=== PATIENT | male | born 1955 | race Caucasian/White ===

== ENCOUNTER → 2020-01-05 10:34 | Outpatient (BNVA) | payer BC, SELFPAY | PROVIDERS: Visit Provider Orthopaedic Surgery | DX: Z09 Encounter for follow-up examination after completed treatment for conditions other than malignant neoplasm (principal); Z98.890 Other specified postprocedural states; M54.16 Radiculopathy, lumbar region; M47.896 Other spondylosis, lumbar region | CPT/HCPCS: 72100; 73560 ==

== ENCOUNTER 2020-01-12 11:30 | Outpatient (CLI) | payer BC, SELFPAY ==
--- NOTE | 2020-01-12 16:45 | MR_ITS ---
WS: [id number] MRI LUMBAR SPINE NONCONTRAST HISTORY: pain COMPARISON: Lumbar spine radiograph 01/05/2020 TECHNIQUE: Sagittal and axial multisequence imaging is submitted. Slight increase in thoracic kyphosis. Posterior lumbar alignment is normal. There is a vertical fracture through the mid L1 vertebral body. Very slight, less than 2 mm retropulsion, of the posterior L1 vertebral body. Approximately 30% loss of height consistent with a compression fracture. No marrow edema. There is a small amount of marrow edema in the L5 facet joints and lamina. Highly suspicious for at least a LEFT pars defect at L5. Disc spaces and vertebral body heights are well-preserved. Conus terminates normally at L1-2 disc level. T12-L1: Very slight flattening of the thecal sac with no stenosis due to the retropulsion. L1-L2: Mild annular disc bulging and facet arthropathy. Mild bilateral foraminal stenosis facet joint arthritis. Greater on the RIGHT. L2-L3: Mild bilateral facet joint arthritis. Small amount of fluid in the RIGHT facet joint. Mild lia ateral foraminal stenosis. L3-L4: Bilateral facet joint arthritis with mild narrowing of the central canal, subarticular recesse s and foramen. L4-L5: Marked facet joint arthropathy and ligamentum flavum hypertrophy. Degenerative changes in the facets and ligaments encroaching upon the ventral thecal sac. There is coalescence of the nerve roots in the thecal sac. Severe central stenosis. There is at least moderate subarticular recess and michael inal stenosis. L5-S1: Annular disc bulging with facet arthropathy. Facet joint arthritis encroaches upon the subarti cular recesses. Moderate central stenosis with subarticular recess and bilateral foraminal stenosis. Osteophytes contact the S1 nerve roots bilaterally. 8 mm RIGHT renal cyst. Incompletely visualized small cyst in the soft tissues posterior to the distal sacrum could be a pilonidal cyst. This is very superficial and incompletely visualized. MR/MR lumbar spine wo con* [id number] IMPRESSION: 1. Advanced facet joint arthropathy and stenoses at L4-5 and L5-S1. 2. Severe central stenosis at L4-5 with moderate subarticular recess and michael inal stenosis. 3. Moderate central, subarticular recess and bilateral foraminal stenosis at L 5-S1. 4. Facet osteophytes contact the S1 nerve roots bilaterally. 5. Chronic L1 compression fracture with 30% loss of height.
== END 2020-01-12 11:31 | disposition home or self-care (01) ==
LOC: RADSHAW 11:32
PROVIDERS: Visit Provider Orthopaedic Surgery
DX: M54.9 Dorsalgia, unspecified (principal); M25.78 Osteophyte, vertebrae; M47.816 Spondylosis without myelopathy or radiculopathy, lumbar region; M48.061 Spinal stenosis, lumbar region without neurogenic claudication; M48.56XA Collapsed vertebra, not elsewhere classified, lumbar region, initial encounter for fracture
CPT/HCPCS: 72148

== ENCOUNTER → 2025-10-28 12:21 | Outpatient (BNVA) | payer MEDICARE, BC, SELFPAY | PROVIDERS: PCP Family Medicine; Referring Provider Family Medicine; Visit Provider Internal Medicine | DX: I25.10 Atherosclerotic heart disease of native coronary artery without angina pectoris (principal); E78.00 Pure hypercholesterolemia, unspecified; I10 Essential (primary) hypertension; Z87.891 Personal history of nicotine dependence; R06.02 Shortness of breath; I44.0 Atrioventricular block, first degree | CPT/HCPCS: 93005; 99204 ==